=== PATIENT | female | born 1945 | race Caucasian/White ===

== ENCOUNTER 2016-12-07 12:51 | Inpatient (IN) | payer BC ==
[~2016-12-07] VITALS: Ht 160 cm; Wt 99.4 kg
[~2016-12-07 12:51] MED LIST: FE-TABS325 MG PO; FOLIC ACID 40400 MCG PO; LISINOPRIL20 MG PO; VITAMIN C500 MG PO
[2017-02-02] MEDS ORDERED: ZESTRIL40 MG PO (11:58)
[2017-02-02] MEDS ORDERED: ZYRTEC 10MG10 MG PO (11:58)
[2017-02-02] MEDS ORDERED: SYNTHROID0.05 MG/TA PO (11:59)
[2017-02-02] MEDS ORDERED: VITAMIN D32000 IU PO (11:59)
[2017-02-02] MEDS ORDERED: HCTZ12.5TAB PO (12:00)
[2017-02-02] MEDS ORDERED: GLUCOPHAGE1000 MG PO ×2 (12:00→12:01)
[2017-02-02] MEDS ORDERED: AMARYL 2MG T2 MG/TAB PO (12:01)
[2017-02-02] MEDS ORDERED: SINGULAIR 110 MG/TAB PO (12:02)
[2017-02-02] MEDS ORDERED: ZOCOR 10MG10 MG PO (12:02)
[2017-02-03] VITALS (67 sets, daily range): BP systolic 105–143; BP diastolic 47–88; PULSE 68–99; TEMP 97.3–98.6; O2SAT 96–100
[2017-02-04 01:03] VITALS: BP 114/54; PULSE 68; TEMP 97.5
[2017-02-04 04:37] VITALS: BP 137/50; PULSE 84; TEMP 97.9
[2017-02-04 07:24] VITALS: BP 118/54; PULSE 84; TEMP 97.7
[2017-02-04 08:03] LABS: HEMATOCRIT 33.9 % (37.0-47.0); HEMOGLOBIN 11.3 g/dl (12.5-16.0)
[2017-02-04 08:14] LABS: CALCIUM 9.6 mg/dL (8.4-10.2); CREATININE, serum 0.57 mg/dL (0.52-1.25); POTASSIUM 4.2 mmol/L (3.4-5.0)
[2017-02-04 08:45] LABS: THYROID STIMULATING HORMONE 0.989 uIU/mL (0.465-4.680)
[2017-02-04 12:05] VITALS: BP 115/46; PULSE 74; TEMP 97.5
[2017-02-04 16:00] VITALS: BP 127/66; PULSE 81; TEMP 97.6
[2017-02-04 20:03] VITALS: BP 105/55; PULSE 66; TEMP 98.5
[2017-02-05 00:46] VITALS: BP 132/57; PULSE 75; TEMP 98.5
[2017-02-05 04:15] VITALS: BP 122/65; PULSE 75; TEMP 98.5
[2017-02-05 07:08] VITALS: BP 141/52; PULSE 82; TEMP 98.3
[2017-02-05 07:51] LABS: HEMOGLOBIN 11.2 g/dl (12.5-16.0)
[2017-02-05 11:24] VITALS: BP 137/60; PULSE 75; TEMP 97.6
[2017-02-05] MEDS ORDERED: CARDIZEM CD 12120 MG PO (12:22)
[2017-02-05 15:41] VITALS: BP 135/52; PULSE 79; TEMP 97.6
[2017-02-05 19:46] VITALS: BP 133/84; PULSE 88; TEMP 98.9
[2017-02-06 04:51] VITALS: BP 119/59; PULSE 77; TEMP 98.2
[2017-02-06 06:24] LABS: HEMATOCRIT 34.9 % (37.0-47.0); HEMOGLOBIN 11.6 g/dl (12.5-16.0)
[2017-02-06 07:13] VITALS: BP 131/57; PULSE 79; TEMP 98.2
== END 2017-02-06 12:00 | disposition home or self-care (01) | DRG 470 ==
LOC: JCC 02-03 05:19 → ICU 02-03 05:19 → JCC 02-03 07:30 → ICU 02-03 10:35 → JCC 02-03 13:30
PROVIDERS: Internal Medicine Interventional Cardiology; Orthopaedic Surgery
PROC: 0SRC0J9 Replacement of Right Knee Joint with Synthetic Substitute, Cemented, Open Approach (ICD-10-PCS; principal; 2017-02-03 07:30)
DX: M17.11 Unilateral primary osteoarthritis, right knee (principal); I48.91 Unspecified atrial fibrillation; I10 Essential (primary) hypertension; E11.9 Type 2 diabetes mellitus without complications
CPT/HCPCS: 99222; 99231-AI; A4315; A9284; C1713; C1776; J0690; J1100; J1815; J2250; J2370; J2704; J3260; J7030

== ENCOUNTER → 2017-01-29 | Outpatient (CLI) | payer BC ==
[~2017-01-29] MED LIST changes: +AMARYL 2MG T2 MG/TAB PO; +CARDIZEM CD 12120 MG PO; +GLUCOPHAGE1000 MG PO; +HCTZ12.5TAB PO; +SINGULAIR 110 MG/TAB PO; +SYNTHROID0.05 MG/TA PO; +VITAMIN D32000 IU PO; +ZESTRIL40 MG PO; +ZOCOR 10MG10 MG PO; +ZYRTEC 10MG10 MG PO
[2017-01-29 14:04] LABS: HIV 1/2 Antibodies Non-Reactive; HIV-1p24 Antigen Non-Reactive
== END ==
LOC: COL.LAB 13:01
PROVIDERS: Orthopaedic Surgery
DX: Z01.812 Encounter for preprocedural laboratory examination (principal); M25.861 Other specified joint disorders, right knee

== ENCOUNTER → 2017-03-08 | Outpatient (CLI) | payer BC | LOC: MC.RAD 09:17 | DX: Z12.31 Encounter for screening mammogram for malignant neoplasm of breast (principal) ==

== ENCOUNTER → 2018-03-10 | Outpatient (CLI) | payer BC | LOC: MC.RAD 09:30 | DX: Z12.31 Encounter for screening mammogram for malignant neoplasm of breast (principal) ==

== ENCOUNTER → 2018-03-30 | Outpatient (REF) | LOC: ZLAB.WCH 17:49 | DX: Z01.89 Encounter for other specified special examinations (principal) ==

== ENCOUNTER → 2019-03-13 | Outpatient (CLI) | payer BC | LOC: MC.RAD 13:03 | DX: Z12.31 Encounter for screening mammogram for malignant neoplasm of breast (principal) ==

== ENCOUNTER → 2020-04-09 | Outpatient (CLI) | payer BC | LOC: MC.RAD 11:00 | DX: Z12.31 Encounter for screening mammogram for malignant neoplasm of breast (principal) ==

== ENCOUNTER → 2021-07-21 | Outpatient (CLI) | payer BC | LOC: MC.RAD 12:53 | DX: Z12.31 Encounter for screening mammogram for malignant neoplasm of breast (principal) ==

== ENCOUNTER → 2022-07-22 | Outpatient (CLI) | payer BC | LOC: MC.RAD 10:57 | DX: Z12.31 Encounter for screening mammogram for malignant neoplasm of breast (principal) ==

== ENCOUNTER → 2024-08-17 | Outpatient (CLI) | payer MEDICARE ==
[~2024-08-17] MED LIST changes: +COREG12.5 MG PO; +COZAAR100 MG PO; +GLUCOTROL 5M5 MG/TAB PO; +HCTZ 25MG TAB25 MG PO; +LASIX 20MG TABL20 MG PO; +NORVASC 5MG5 MG/TAB PO; +TOUJEO300 U/ML SQ
== END ==
LOC: MC.RAD 09:30
DX: Z12.31 Encounter for screening mammogram for malignant neoplasm of breast (principal)